=== PATIENT | female | born 1960 | race Caucasian/White ===

== ENCOUNTER 2020-05-26 22:04 | Emergency (ER) | payer OTHER ==
[~2020-05-26] VITALS: Ht 175.3 cm; Wt 74.8 kg
[2020-05-27] MEDS ORDERED: LISINOPRIL10 MG PO (01:10)
[2020-05-27] MEDS ORDERED: CARVEDILOL3.125 MG PO (01:10)
[2020-05-27] MEDS ORDERED: ARICEPT10 MG PO (01:11)
[2020-05-27] MEDS ORDERED: ATORVASTATIN CA20 MG PO (01:11)
[2020-05-27] MEDS ORDERED: FOLIC ACID1 MG PO (01:12)
[2020-05-27] MEDS ORDERED: LEVETIRACETAM750 MG PO (01:12)
[2020-05-27] MEDS ORDERED: GABAPENTIN 100100 MG PO (01:13)
[2020-05-27] MEDS ORDERED: QUETIAPINE FUMA50 MG PO (01:13)
[2020-05-27] MEDS ORDERED: TRAZODONE HCL50 MG PO (01:14)
[2020-05-27] MEDS ORDERED: LORAZEPAM 0.50.5 MG PO (01:16)
[2020-05-27] MEDS ORDERED: MELATONIN5 MG SUBLING (01:16)
[2020-05-27 04:44] VITALS: BP 90/52
== END 2020-05-27 04:44 ==
LOC: ER 22:04
DX: Z00.8 Encounter for other general examination (principal); Z79.899 Other long term (current) drug therapy; Z20.822 Contact with and (suspected) exposure to COVID-19

== ENCOUNTER 2020-05-27 04:38 | Inpatient (IN) | payer OTHER ==
[~2020-05-27] VITALS: Ht 175.3 cm; Wt 73.5 kg
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
[~2020-05-27 04:38] MED LIST: ARICEPT10 MG PO; ATORVASTATIN CA20 MG PO; CARVEDILOL3.125 MG PO; FOLIC ACID1 MG PO; GABAPENTIN 100100 MG PO; LEVETIRACETAM750 MG PO; LISINOPRIL10 MG PO; LORAZEPAM 0.50.5 MG PO; MELATONIN5 MG SUBLING; QUETIAPINE FUMA50 MG PO; TRAZODONE HCL50 MG PO
[2020-05-27 05:28] VITALS: BP 95/67
[2020-05-27 11:15] VITALS: BP 98/69
[2020-05-27 12:09] VITALS: BP 98/69
[2020-05-27 12:13] VITALS: BP 98/69
--- NOTE | 2020-05-27 13:04 | NUR ---
ASSUMED CARE AT 0700 THIS MORNING. PT. WALKING AROUND "HELPING TAKE CARE OF PATIENTS FOR STAFF" SHE WAS ASKED BY SEVERAL STAFF MEMBERS TO PLEASE DO NOT TAKE CARE OF THE PATIENTS WE DO NOT WANT HER TO GET HURT. SHE STATED, "WELL THEY WON'T TAKE CARE OF THE PATIENTS VERY WELL THOUGH". SHE WAS COOPERATIVE WITH THIS STAFF IN TAKING HER MORNING MEDICATIONS AFTER SHE ASKING WHAT EACH AND EVERY MEDICATION WAS. SHE REMAINS SOMEWHAT CONFUSED NEEDING SHOWN WHERE HER ROOM WAS REPEATEDLY AND EVERY TIME SHE NEEDED TO UTILIZE THE RESTROOM. NO AGRESSION NOTED TODAY. HER MOOD IS DEPRESSED WITH FLAT AFFECT. SHE WAS COOPERATIVE WITH COMING ONTO THE UNIT FOR GROUPS. WILL CONTINUE TO MONITOR.
[2020-05-27 13:35] LABS: ABSOLUTE NEUTROPHILS 3.2 thou/uL (1.4-8.2); BASOPHILS 2.7 % (0.0-2.0); EOSINOPHILS 3.5 % (0.0-3.0); HEMOGLOBIN 12.3 gm/dL (12.0-15.0); MCH 28.4 pg (26.0-34.0); MCHC 31.6 g/dL (28.0-37.0); MCV 89.9 fL (80.0-100.0); MONOCYTES 7.7 % (1.0-8.0); PLATELET COUNT 120 thou/uL (150-400); POLYS 55.1 % (36.0-66.0); RBC 4.34 mil/uL (4.20-5.00); RDW 20.8 % (10.5-14.5); WBC 6.1 thou/uL (4.0-11.0)
[2020-05-27 13:42] VITALS: BP 98/69
[2020-05-27 13:57] LABS: ALBUMIN 4.1 g/dL (3.4-5.0); CALCIUM 9.5 mg/dL (8.5-10.1); CREATININE 0.7 mg/dL (0.6-1.0); MAGNESIUM 1.6 mg/dL (1.8-2.4); POTASSIUM 4.8 mmol/L (3.5-5.1); TOTAL BILIRUBIN 0.4 mg/dL (0.2-1.0); TOTAL PROTEIN 7.9 g/dL (6.4-8.2)
[2020-05-27 19:14] VITALS: BP 142/88
--- NOTE | 2020-05-28 04:53 | NUR ---
05-27-20 CARE TRANSFERRED 1899 OBSERVED PT SITTING IN DAY ROOM SOCIALIZING. LATER PT AAOX3, VSS, RR EVEN AND NONLABORED ON RA. PT DENIES SI/HI. PT REPORTS PAIN OF SHOULDERS BI-LAT AND PAIN HAS BEEN MANAGED WITH PRN MEDICATION. PT PRESENTS CALM AND COOPERATIVE, BUT HAS DISORGNIZED THOUGHTS INTO RELATION ITEMS. ZERO S/S OF ACUTE DISTRESS NOTED, PT WILL CONTINUE TO BE MONITOR PER [facility] PROTOCOL.
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
[2020-05-28 11:45] VITALS: BP 131/85
[2020-05-28 12:42] VITALS: BP 131/85
--- NOTE | 2020-05-28 12:45 | NUR ---
ASSUMED CARE OF PT. AT 0700 THIS MORNING. PT. UP AND WALKING AROUND THE UNIT TALKING TO SEVERAL OF THE CONFUSED MEN ON THE UNIT, SHE REMAINED APPROPRIATE. SHE WAS ASKED ABOUT GIVING THE UA. SHE SMILED AND SAID YOU CAUGHT ME. WHEN THIS RN WENT INTO THE PT'S BATHROOM, SHE HAD REMOVED THE HAT FROM HER STOOL BEFORE SHE URINATED. THIS RN REPLACED IT AND ASKED AGAIN ABOUT HER BEING ABLE TO PROVIDE ANOTHER SAMPLE, SHE STATED SHE WOULD. ABOUT 1300 SHE DID SO. SPECIMEN TAKEN TO THE LAB. PT. ATTEMPTED TO TAKE FOOD TO HER ROOM. SHE WAS INFORMED THAT NO FOOD CAN BE IN THE ROOMS. PT. SNIPPED, "WELL YOU JUST FEEL ALMIGHTY TELLING ME WHAT TO DO, DON'T YOU?" LATER SHE WANTED IN HER ROOM AND WAS AGITATED THAT THE DOOR WAS LOCKED SO WANDERING PEERS WOULD STAY OUT OF THEIR ROOM. SHE DID TAKE HER MORNING MEDICATIONS AFTER ALL WERE EXPLAINED TO HER ONE BY ONE.
[2020-05-28 13:56] LABS: URINE BILIRUBIN NEGATIVE (Negative); URINE BLOOD NEGATIVE (Negative); URINE CLARITY CLEAR; URINE COLOR YELLOW; URINE GLUCOSE-RANDOM* NEGATIVE (Negative); URINE KETONES NEGATIVE (Negative); URINE LEUKOCYTES-REFLEX TRACE (Negative); URINE NITRITE-REFLEX NEGATIVE (Negative); URINE PROTEIN (DIPSTICK) NEGATIVE (Negative); URINE UROBILINOGEN 0.2 E.U./dl (0.2-1.0)
[2020-05-28 19:39] VITALS: BP 109/76
[2020-05-29 00:37] VITALS: BP 109/76
--- NOTE | 2020-05-29 03:38 | NUR ---
ASSESSMENT DOCUMENTED.PT BEEN RESTING IN NO ACUTE DISTRESS.A/OX3 WITH FORGETFULNESS.PT BEEN VERY CO-OPERATIVE WITH CARE AND TOOK HER MEDS W/O PROBLEMS.VSS.AMBULATED IN THE UNIT W/STEADY GAIT.PT WENT TO BED AT AROUND 2230 ADN SHE BEEN SLEEPING SINCE THEN IN NO DISTRESS OR CONCERNS.DENIES SI/HI,DENIES PAIN.CONTINENT OF B&B.POC IS TO CONTINUE WITH CURRENT MEDICAL MANAGEMENT.
[2020-05-29 07:00] VITALS: BP 130/88
--- NOTE | 2020-05-29 10:14 | NUR ---
Nutrition: pt admitted to [facility] unit with dementia with behaviors, agitation from NH. PMH: ETOH, seizures, bipolar, IC hemorrhage, GERD, HTN. No weight hx to evaluate however BMI 23 normal. On MVI, folic acid, thiamine. Pt eating 100% of meals so far on regular diet. Consider low nutrition risk at present.
--- NOTE | 2020-05-29 15:49 | NUR ---
PATIENT WAS UP, AND OUT ON THE UNIT WHEN CARE ASSUMED. SHE TOOK ALL MEDICATION WHOLE WITHOUT DIFFICULTY. PATIENT IS EATING MEALS, AND DRINKING FLUID WELL. PATIENT PARTICIPATING IN GROUP THERAPY. PATIENT DENIES SUICIDAL/HOMICIDAL IDEATION, SHE DENIES DEPRESSION/ANXIETY STATES "BEING HERE IS REALLY OVERWHELMING, IF AM DEPRESSED, IT'S BECAUSE AM IN HERE". SHE DENIES HAVING PHYSICAL PAIN. PATIENT AMBULATE WITH STEADY GAIT. AFFECT IS FLAT, MOOD IS CALM/EUTHYMIC. NO SIGN OF ACUTE DISTRESS NOTED AT THIS TIME, WILL MONITOR FOR SAFETY.
[2020-05-29 20:00] VITALS: BP 131/79
--- NOTE | 2020-05-30 03:14 | NUR ---
ASSESSMENT DOCUMENTED.PT A/OX4.VSS.PT AWOKE AT THIS TIME AND AT THE DINING AREA.SHE IS CALM W/O CONCERNS VOICED.PT HAS BEEN CO-OPERATIVE AND APPROPRIATE W/O AGITATION.NO SI/HI VOICED.POC IS TO CONTINUE WITH THE CURRENT MEDICAL AND BEHAVIORAL MANAGEMENT.
--- NOTE | 2020-05-30 04:45 | NUR ---
PT REQUESTING FOR A PEN AND PAPERS TO WRITE ON,STAFF PROVIDED A SMALL PENCIL AND SOME PAPERS,PT REQUESTED FOR A PEN,STAFF NOTIFIED PT PER THE PROTOCOLS SHE IS SUPPOSED TO USE A SMALL PENCIL TO ENSURE SAFETY.PT STARTED TO DISPLAY AGITATION W/IRRITATION STATING "I KNOW MY RIGHTS,I WANT A PEN" SHE CONTINUED TO BE ICREASINGLY AGITATED URGING W/SATFF, PACING BACK AND FORTH AT THE NURSES' STATION DEMANDING TO HAVE A PEN.PT EDUCATION GIVEN AGAIN REGARDING REASONS FOR NOT GIVING PT PENS W/O SUCCESS.PT GIVEN SEROQUEL D/T INCREASED AGITATION ACCOMPAINIED BY INCREASED PACING.WILL REASSESS.PT PACING AT THE NURSES STATION AT THIS TIME.WILL CONT TO REASSURE AND ASSESS.
[2020-05-30 10:09] VITALS: BP 115/78
--- NOTE | 2020-05-30 12:57 | NUR ---
YULIET contacted Radha via phone. No answer. YULIET left a msg. YULIET contacted Jewels and asked her to ask Radha to call her. Jewels said she would. YULIET team will continue to follow pt during her stay on this unit.
--- NOTE | 2020-05-30 16:37 | NUR ---
PATIENT HAS BEEN UP, AND OUT ON THE UNIT, AMBULATES WITH STEADY GAIT. PATIENT TAKES MEDICATION WHOLE WITHOUT DIFFICULTY. SHE IS EATING MEALS, AND DRINKING FLUID WELL. PATIENT DENIES SUICIDAL/HOMICIDAL IDEATION, SHE RATES DEPRESSION 10/23, "AM SO DEPRESSED BECAUSE ALL THAT IS GOING ON" WILL NOT ELABORATE. SHE DENIES ANXIETY, DENIES HAVING PHYSICAL PAIN. PATIENT PARTICIPATES IN GROUP THERAPY, NO SIGN OF ACUTE DISTRESS NOTED, WILL MONITOR FOR SAFETY.
[2020-05-30 19:07] LABS: SYPHILIS AB Non Reactive (Non Reactive)
[2020-05-30 19:39] VITALS: BP 142/93
[2020-05-30 20:36] LABS: HEMATOCRIT 37.5 % (37.0-47.0); HEMOGLOBIN 12.4 gm/dL (12.0-15.0); MCH 28.9 pg (26.0-34.0); MCHC 33.1 g/dL (28.0-37.0); MCV 87.4 fL (80.0-100.0); RBC 4.29 mil/uL (4.20-5.00); RDW 19.8 % (10.5-14.5); WBC 8.5 thou/uL (4.0-11.0)
[2020-05-30 20:50] LABS: ALBUMIN 4.4 g/dL (3.4-5.0); CALCIUM 9.3 mg/dL (8.5-10.1); CREATININE 0.9 mg/dL (0.6-1.0); MAGNESIUM 1.8 mg/dL (1.8-2.4); POTASSIUM 4.5 mmol/L (3.5-5.1); TOTAL BILIRUBIN 0.5 mg/dL (0.2-1.0); TOTAL PROTEIN 8.1 g/dL (6.4-8.2)
--- NOTE | 2020-05-30 21:00 | NUR ---
Critical labs called to unit for Sodium at 118. Dr. Abdi notified of results at 2055.
--- NOTE | 2020-05-30 23:54 | NUR ---
DRAPERY MAKER called at 1954 for witnessed seizure activity. See DRAPERY MAKER flowsheet.
--- NOTE | 2020-05-31 00:07 | NUR ---
Late entry for 05/30/20 @ 1959. At approximately 1955 nurse was notified by surveillance director that patient was having what appeared to be a seizure. Nursing when to day room where patient was laying on floor. Pt had been lowered to floor by surveillance director. Pt having observed having tonic/clonic movements that lasted approximately 2 minutes. Pt was rolled to her right side. Pt was dusky in color. Pt was incontinent of urine during seizure. Pt had no c/o pain upon coming out of seizure, but small amount of blood was observed coming from pts mouth were she had bit her tongue during the seizure. VS during seizure taken: 168/79; 85; 18; 97% on room air. Blood sugar checked and was 98. Rapid response was called and rapid response team took over care of pt at that time. Dr. Carter on unit and aware; Dr. Abdi notified. Labs drawn and order for CT w/contrast received. Pt was transfered to ICU 250 at approximately 2215 via w/c accompanied by EMPLOYEE COMMUNICATIONS INTERN after report was given to IRISH Nunez at 2206. Attempted to leave message for daughterRadha, mailbox full so no message was able to be left. Alternative contact Jewels Clay notified of pt transfer to medical floor.
--- NOTE | 2020-05-31 07:17 | EKG ---
[address] [address] ELECTROCARDIOGRAM REPORT Name: BILLIE WINKLER Room #: 524A-A [facility] IN .R.#: [id number] Admission: 05/27/20 Attend Phys: Anais Nunes MD Discharge: 05/30/20 Date of : 58 Report #: [id number] [facility] Test Date: 2020-05-30 Test Time: 20:15:28 Pat Name: BILLIE WINKLER Department: Room: [facility] A Gender: F General Manager: SELENA : 1960 Requested By: Cyrus Carter Order Number: [id number] MD: Devon Schaffer Measurements Intervals [place] Rate: 77 P: 35 PA: 248 QRS: 54 QRSD: 99 T: 44 QT: 395 QTc: 448 Interpretive Statements Sinus rhythm Prolonged PA interval Baseline wander in lead(s) V3,V6 No previous ECG available for comparison Electronically Signed On 05-31-2020 7:17:43 CDT by Devon Schaffer [email or web address] <ELECTRONICALLY SIGNED> By: Devon Schaffer MD, [facility] 05/31/20716 14 14 Devon Schaffer MD, FACC /EPI
[2020-05-31] MEDS ORDERED: DESYREL150 MG PO (12:37)
[2020-05-31] MEDS ORDERED: LISINOPRIL10 MG PO (12:39)
[2020-05-31] MEDS ORDERED: SEROQUEL 25 MG25 MG PO (12:39)
[2020-05-31] MEDS ORDERED: LEVETIRACETAM500 M1 PO (12:41)
[2020-05-31] MEDS ORDERED: FOLIC ACID1 MG PO (12:42)
[2020-05-31] MEDS ORDERED: ARICEPT10 M1 PO (12:43)
[2020-05-31] MEDS ORDERED: LIPITOR 20 MG T20 M1 PO (12:44)
[2020-05-31] MEDS ORDERED: GABAPENTIN100 MG PO (12:46)
[2020-05-31] MEDS ORDERED: CARVEDILOL12.5 MG PO (12:46)
[2020-05-31] MEDS ORDERED: MELATONIN5 MG PO (12:48)
[2020-05-31] MEDS ORDERED: LORAZEPAM 0.50.5 MG PO (12:49)
== END 2020-05-30 21:56 | disposition short-term general hospital (02) | DRG 884 ==
LOC: SBH 04:38
PROVIDERS: Internal Medicine; ADMIT Psychiatry & Neurology Psychiatry; ATTEND Psychiatry & Neurology Psychiatry
DX: F01.51 Vascular dementia, unspecified severity, with behavioral disturbance (principal); E22.2 Syndrome of inappropriate secretion of antidiuretic hormone; F19.10 Other psychoactive substance abuse, uncomplicated; I10 Essential (primary) hypertension; E78.5 Hyperlipidemia, unspecified; D69.6 Thrombocytopenia, unspecified; F10.20 Alcohol dependence, uncomplicated; F31.9 Bipolar disorder, unspecified; R56.9 Unspecified convulsions
CPT/HCPCS: 10880

== ENCOUNTER 2020-05-30 22:02 | Inpatient (IN) | payer OTHER ==
[~2020-05-30] VITALS: Ht 177.8 cm; Wt 76.0 kg
[2020-05-30 23:30] VITALS: BP 160/75
--- NOTE | 2020-05-30 23:36 | NUR ---
[address] OF [address] BRAY ADMITTED TO ICU POST SEIZURE FRO, 5 [facility] UNIT. AWAKE AND ALERT COOPERATIVE. SODIUM 118 ON ADMIT 3 % SALINE ORDERED AT 30 CC/HR. WILL CONT TO MONITOR
[2020-05-31] VITALS (23 sets, daily range): BP systolic 94–124; BP diastolic 54–72
--- NOTE | 2020-05-31 01:15 | NUR ---
NA 122 3% NS STOPPED PER ORDER
[2020-05-31 03:09] LABS: URINE POTASSIUM-RANDOM* 9.7 mmol/L
[2020-05-31 05:16] LABS: HEMATOCRIT 38.4 % (37.0-47.0); HEMOGLOBIN 12.8 gm/dL (12.0-15.0); MCH 28.9 pg (26.0-34.0); MCHC 33.2 g/dL (28.0-37.0); RBC 4.41 mil/uL (4.20-5.00); RDW 19.2 % (10.5-14.5); WBC 6.7 thou/uL (4.0-11.0)
[2020-05-31 05:32] LABS: CALCIUM 9.4 mg/dL (8.5-10.1); CREATININE 0.6 mg/dL (0.6-1.0); POTASSIUM 3.7 mmol/L (3.5-5.1)
--- NOTE | 2020-05-31 06:00 | NUR ---
PT HAS SLEPT AT INTERVALS. NA NOW 133. DR BRAY NOTIFIED. SHE WILL SEE PT AND DISCHARGE HER BACK UPSTAIRS THIS AM. PROGRESSING TOWARD GOALS
--- NOTE | 2020-05-31 09:22 | NUR ---
SW will continue to follow pt during her stay on the medical unit.
--- NOTE | 2020-05-31 10:48 | NUR ---
chart review. she came down from [facility] rt abnormal lab, NA was low. anticipated returning back to [facility] when medically stable. discussed during am rounds.
--- NOTE | 2020-05-31 11:12 | NUR ---
Sodium now 127, recheck at 8pm and then in am. transfer to 524B.
[2020-05-31] MEDS ORDERED: DESYREL150 MG PO (12:37)
[2020-05-31] MEDS ORDERED: LISINOPRIL10 MG PO (12:39)
[2020-05-31] MEDS ORDERED: SEROQUEL 25 MG25 MG PO (12:39)
[2020-05-31] MEDS ORDERED: LEVETIRACETAM500 M1 PO (12:41)
[2020-05-31] MEDS ORDERED: FOLIC ACID1 MG PO (12:42)
[2020-05-31] MEDS ORDERED: ARICEPT10 M1 PO (12:43)
[2020-05-31] MEDS ORDERED: LIPITOR 20 MG T20 M1 PO (12:44)
[2020-05-31] MEDS ORDERED: CARVEDILOL12.5 MG PO (12:46)
[2020-05-31] MEDS ORDERED: GABAPENTIN100 MG PO (12:46)
[2020-05-31] MEDS ORDERED: MELATONIN5 MG PO (12:48)
[2020-05-31] MEDS ORDERED: LORAZEPAM 0.50.5 MG PO (12:49)
== END 2020-05-31 11:30 | disposition short-term general hospital (02) | DRG 641 ==
LOC: ICU 22:02
PROVIDERS: ADMIT Internal Medicine; ATTEND Internal Medicine
DX: E87.1 Hypo-osmolality and hyponatremia (principal); F03.91 Unspecified dementia, unspecified severity, with behavioral disturbance; F32.9 Major depressive disorder, single episode, unspecified; F41.9 Anxiety disorder, unspecified; K21.9 Gastro-esophageal reflux disease without esophagitis; I10 Essential (primary) hypertension; G47.00 Insomnia, unspecified; I48.91 Unspecified atrial fibrillation; E78.2 Mixed hyperlipidemia; Z86.73 Personal history of transient ischemic attack (TIA), and cerebral infarction without residual deficits; Z79.899 Other long term (current) drug therapy
CPT/HCPCS: 10078

== ENCOUNTER 2020-05-31 12:15 | Inpatient (IN) | payer OTHER ==
[~2020-05-31] VITALS: Ht 175.3 cm; Wt 76.2 kg
[2020-05-31] MEDS ORDERED: DESYREL150 MG PO (12:37)
[2020-05-31] MEDS ORDERED: SEROQUEL 25 MG25 MG PO (12:39)
[2020-05-31] MEDS ORDERED: LISINOPRIL10 MG PO (12:39)
[2020-05-31] MEDS ORDERED: LEVETIRACETAM500 M1 PO (12:41)
[2020-05-31] MEDS ORDERED: FOLIC ACID1 MG PO (12:42)
[2020-05-31] MEDS ORDERED: ARICEPT10 M1 PO (12:43)
[2020-05-31 12:44] VITALS: BP 134/72
[2020-05-31] MEDS ORDERED: LIPITOR 20 MG T20 M1 PO (12:44)
[2020-05-31] MEDS ORDERED: CARVEDILOL12.5 MG PO (12:46)
[2020-05-31] MEDS ORDERED: GABAPENTIN100 MG PO (12:46)
[2020-05-31] MEDS ORDERED: MELATONIN5 MG PO (12:48)
[2020-05-31] MEDS ORDERED: LORAZEPAM 0.50.5 MG PO (12:49)
--- NOTE | 2020-05-31 17:12 | NUR ---
1650 PATIENT TRANSFER FROM ICU BACK TO [facility] UNIT; UPON ARRIVING TO UNIT PATIENT CALM COOPERATIVE. PATIENT DENIES SI/HI/AH/VH AT PRESENT PATIENTS ABDOMEN SOFT BOWEL SOUNDS PRESENT. PATIENTS LUNGS CLEAR PATIENT WAS INTERACTING IN GROUPS AND WITH OTHER PATIENTS. PATIENT HAD TO BE REMINDED OF NOT TOUCHING OTHER PATIENTS. PATIENT WAS TRYING TO BE HELPFUL WITH SOME OF THE PATIENTS. I WENT TO ICU TO SEE IF PATIENTS MINT GREEN SWEATER AND PAIR OF BLACK SLACKS WERE DOWN THERE. I DID NOT FIND PATIENT THE ARTICLES OF CLOTHING. PATIENT ALERT ORIENTED TIMES 3 NO BEHAVIORS WILL CONTINUE TO MONITOR PATIENT FOR SAFETY AND BEHAVIORS.
[2020-05-31 19:51] VITALS: BP 102/72
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
[2020-06-01 05:34] LABS: CALCIUM 9.8 mg/dL (8.5-10.1); CREATININE 0.5 mg/dL (0.6-1.0); POTASSIUM 4.1 mmol/L (3.5-5.1)
[2020-06-01 09:37] VITALS: BP 98/73
--- NOTE | 2020-06-01 10:43 | NUR ---
Nutrition: New admit screen. Intake 80-100%. Wt earlier in the week 162-165 lb. Albumin 4.4, Cr 0.5. Meds reviewed. Pt confused. Hx of ETOH, seizures, Bipolar, GERD, HTN. Pt assessed at low nutrition risk.
[2020-06-01 11:46] VITALS: BP 128/72
--- NOTE | 2020-06-01 14:15 | NUR ---
RT Progress Note- Trinidad has been variably active in recreation therapy groups during this review. Over the last few days she has begun to wander in and out of group and is unable to remain seated longer than a few minutes at a time. She is requiring frequent reminders of what the task she is to complete is, and forgets a few minutes later. DATA OPERATIONS MANAGER will continue to encourage her participation and improved attention and concentration.
--- NOTE | 2020-06-01 15:57 | NUR ---
YULIET faxed updates for pt to Maria with [facility]. YULIET team will continue to follow pt during her stay on this unit.
--- NOTE | 2020-06-01 16:23 | NUR ---
1625 RESUMMED CARE FROM OVERNIGHT SHIFT THIS AM, PATIENT IN DAY ROOM WANDERING AROUND UNIT. PATIENT HAS POOR BOUNDARIES TOUCHING OTHER PATIENT GOING IN PATIENTS ROOMS. PATIENT THIS AM WAS FOUND IN A MALE PATIENTS DOORWAY TOUCHING ON PATIENT. I REDIRECTED PATIENT TO NOT TOUCH OTHER PATIENTS, I CLOSED OTHER PATIENTS DOOR TO KEEP PATIENT OUT OF ROOMS. PATIENT ALERT ORIENTED TO SELF AND PLACE; PATIENT IS NOT REDIRECTABLE. PATIENT GOT SEROQUEL 75 MG AT 1345 PO FOR AGITATION/AGGRESSION TOWARDS STAFF. PATIENT SEVERAL HOURS LATER STILL POOR BOUNDARIES AND I CALLED DR AGUIRRE HE CHANGED THE SEROQUEL TO 100 MG TID. PATIENT RECEIVED A DOSE OF 100 MG AT 1525, PATIENT DENIES SI/HI/AH/VH AT PRESENT. PATIENTS ABDOMEN SOFT BOWEL SOUNDS PRESENT PATIENTS LUNGS CLEAR; PATIENT IS STILL NOT REDIRECTABLE STILL TOUCHING PATIENTS YELLING IN THE HALLS. I CALLED DR AGUIRRE FOR A IM PRN HE ORDERED HALDOL 7.5 MG AND ATIVAN 1.5 MG. PATIENT WAS GIVEN THIS AT 1623. PATIENT IS CONFUSED AT TIMES THOUGHTS ARE SCATTERED. WILL CONTINUE TO MONITOR PATIENT FOR SAFETY AND BEHAVIORS.
[2020-06-01 22:25] VITALS: BP 109/68
--- NOTE | 2020-06-01 22:45 | NUR ---
ASSUMED CARE OF PT FROM DAY SHIFT PT ALERT TO SELF , UP AMBULATING IN HALLWAYS AND WANDERING IN OTHER PATIENTS ROOMS, ANGRY AND AGGRESSIVE AT TIMES ,HITTING AT STAFF AND PULLING ON ARMS OF OTHER PATIENTS. PT DO NOT FOLLOW COMMANDS AND IS NOT EASILY DIRECTED. PT DID TAKE HS MEDICATION. PT HAVE FALL BRACELET ON AND YELLOW DANNA SHIRT BUT WILL KEEP YELLOW NON- SLIP SLIPPERS. PT SITTING ON COUCH AND HAD A WITNESSED FALL WHEN GETTING UP FROM COUCH . DR AGUIRRE NOTIFED. ONE TO ONE SITTER ORDERED AND NEURO CHECKS , WILL CONITUE TO MONITOR AND WILL NOTIFEY ND OF CHANGES. PT REMAIN VERY AGITATED AND CONFUSED AND AGRESSIVE WITH STAFF.
--- NOTE | 2020-06-02 06:08 | NUR ---
RIGHT WRIST SPLINT APPLIED TO WRISIT PT TOLERATED FOR APPROX ONE HOUR THAN TOOK BRACE OFF, BRACE REAPPLIED AND PT CONITUE TO REMOVE. PT REMAINS WITH 1:1 SITTER FOR SAFETY .PT DENIES PAIN WHEN ASK. WILL REPORT CHANGES OR ABNORMAL FINDINGS.
[2020-06-02 08:25] VITALS: BP 133/83
[2020-06-02 13:14] LABS: CREATININE 0.7 mg/dL (0.6-1.0); MAGNESIUM 1.7 mg/dL (1.8-2.4); PHOSPHORUS 4.2 mg/dL (2.6-4.7); POTASSIUM 3.9 mmol/L (3.5-5.1)
--- NOTE | 2020-06-02 14:47 | NUR ---
Orientated to person, place but not to time. Thinks it is 2012. Alert and cooperative, compliant with meds. Sitting in gerichair with lapbuddy in place. Denies SI/HI. Tylenol given for pain mid morning after cast placed on R arm, noncompliant with brace. States pain gone. Breath sounds clear. Reg HR auscultated. Color pink with brisk capillary refill and palpable peripheral pulses. No edema noted. Yellow urine per toilet per report. Active bowel sounds over soft, rounded abdomen. Able to stand with assistance. R forearm/wrist casted this AM, brisk capillary refill in fingers. Handed cast to community development coordinator who was sitting across table from her. Apparently she wiggled cast off arm, no s/o destruction to cast. Ortho called, Dr. Palacios states he will have PA call back with plan. Dainelle VELASQUEZ called, told to replace brace and she will be here in approximately an hour to place long arm cast. No s/o of discomfort, pt compliant with brace being replaced. Sitting quietly in gerichair without s/o distress.
[2020-06-02 19:57] VITALS: BP 126/81
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
[2020-06-03 00:40] VITALS: BP 126/81
--- NOTE | 2020-06-03 02:59 | NUR ---
Assumed care on 06/02/20 @ 1900, seated in a luz chair in the day room watching TV, and monitored by a 1:1 sitter (while awake). Compliant with medications, took meds whole with water. FX right upper extremity on 06/01. Casted to above the elbow. Retired to bed @ 2200, sleeping at this writing, eyes closed, respirations even and unlabored. High Fall risk and Santizo scale of 55. Will continue to monitor as per unit protocol for comfort and safety. Bed in low position, bed alarm set.
[2020-06-03 09:50] VITALS: BP 109/80
--- NOTE | 2020-06-03 10:38 | NUR ---
YULIET received a message from patient's cousin Marie. YULIET returned call to family memeber. Marie reported patient loves to read and do crossword puzzles. Dilcia reported she is a support for patient and can help patient and staff through difficult behaviors. SW will provide patient with contact information for Marie.
--- NOTE | 2020-06-03 13:53 | NUR ---
NOTED TO BE SITTING QUIETLY IN DAYROOM ON INITIAL ASSESSMENT THIS AM AT 0745-QUIET THROUGHOUT BREAKFAST AND TOOK AM MEDICATIONS WITHOUT RESISTANCE. AT APPROX 1100 NOTED TO HAVE INCREASED RESTLESSNESS-YELLING AT STAFF IN DAYROOM "SOMEONE COME GET THIS LADY SHE NEEDS TO GO TO THE BATHROOM AND SHE NEEDS TO GO RIGHT NOW" WHEN ASKED TO PLEASE NOT YELL NOTED TO HAVE INCREASED AGITATION "IF YOU DIDN'T WANT THIS JOB YOU SHOULDN'T BE WORKING IN THIS [facility]" REMOVED LAP SHAYLEE AND WALKING RAPIDLY OUT OF DINING ROOM AREA-DID RETURN TO DAYROOM AFTER MULTIPLE PROMPTS BUT REMAINS IRRITABLE AND RESTLESS-GETTING UP ON OWN DESPITE UNSTEADY GAIT AND RECENT FALL WITH FX-DR. AGUIRRE ON UNIT AND INFORMED OF PTS INCREASED AGITATION AND REFUSAL TO FOLLOW VERBAL DIRECTION DENIES C/O PAIN. NO NOTED PSYCHOSIS- ASKED TO SEE PT RE INCREASED AGITATION AND REPORTS HE TALKED WITH HER RE BEHAVIORS-NO NEW ORDERS RECEIVED. 1;1 DC'D. AT APPROX 1145 BECAME AGITATED WITH ANOTHER RN ON UNIT WHO ASKED HER TO RETURN UNIT PHONE AFTER COMPLETING PHONE CALL WITH SW-GOT UP FROM CHAIR AND BEGAN TO RUN ACROSS DAYROOM IN ATTEMPT TO GET PHONE BACK INSISTING THAT IT WAS HERS-YELLING OBSCENITIES AT THIS NURSE AND REFUSES TO SIT BACK DOWN IN CHAIR. DR. AGUIRRE NOTIFIED OF ABOVE
--- NOTE | 2020-06-03 16:43 | NUR ---
YULIET helped patient make a phone call to two of her cousins. Patient reported she was happy and provided the family with her security codes.
--- NOTE | 2020-06-04 05:20 | NUR ---
Assumed care for pt 1900. Pt on 1:1 at this time for safety. Pt in dining room watching television. Pt has been calm and cooperative in earlier part of shift. Pt denied any pain at time of assessment, and just stated her arm is achy from having to hold that big cast. Pt later awoke at appoximately 0320 and became increasing irritated with the staff that were with her. Dr. Nicole was on oncall and notified with orders received to give Geodon 20 mg IM x 1. Pt cooperative with receiving the shot. Will continue to monitor for any changes.
[2020-06-04 05:42] LABS: CALCIUM 9.5 mg/dL (8.5-10.1); CREATININE 0.7 mg/dL (0.6-1.0); MAGNESIUM 1.6 mg/dL (1.8-2.4); PHOSPHORUS 4.1 mg/dL (2.6-4.7)
[2020-06-04 10:30] VITALS: BP 156/94
--- NOTE | 2020-06-04 11:52 | NUR ---
Assumed pt care at 0700. pt was oriented to self. Assessments completed, VSS. pt took medication whole with thin liquid, no difficulty noted. pt ambulates with a Liz chair. calm and co-operative, denies si/hi. At this time there is no c/o of pain. at this time there is no sign of acute distress noted. pt is seated in the day room at this time. IV was pulled out per Dr Jackson order. pt was assisted with meals.Will continue to monitor.
--- NOTE | 2020-06-04 16:49 | NUR ---
Assumed pt care at 0700. pt was alert and oriented x2. denies si/hi. denies pain. Assessments completed,vss. pt ambulates with a steady gait. pt has a one on one staff with her all day. pt took meds whole without difficulty. participated in groups. pt got aggressive towards staff and was threatening violence. pt was redirected. pt continue to threaten staff and disrupting other pt. pt was screaming and yelling. pt situation was reported to DR Carter. An order of 20mg of Geodon was obtained. pt was given 20mg IM of Geodon at 1251. At this time there is no c/o of pain. will continue to monitor pt.
[2020-06-04 19:28] VITALS: BP 117/88
[2020-06-04 20:00] VITALS: BP 117/88
--- NOTE | 2020-06-05 02:22 | NUR ---
ASSESSMENT: PT REMAIN 1:1 SITTER WHILE AWAKE. PT WAS USING INAPPROPRIATE LANGUAGE TOWARDS STAFF, SCREAMING DEMANDS, GOING IN OTHERS ROOM, AND DISPLAYING AGRESSIVE BEHAVIOR TOWARDS STAFF. SECURITY WAS CALLWED TWICE FOR THIS PT. TELEPHONE SURVEYOR UMM WAS NOTIFIED OF PT'S BEHAVIOR AND ONE TIME/MAY REPEAT ORDER FOR SUSI WAS GIVEN. RIGHT CAST INTACT. DID NOT NEED TO USE THE SECOND DOSE OF YET, PT SLEEPING AT THIS TIME. WILL CONTINUE TO MONITOR.
[2020-06-05 07:55] VITALS: BP 123/81
--- NOTE | 2020-06-05 11:24 | NUR ---
YULIET contacted Maria to give her a verbal update on pt. YULIET was told she was in the building, but the recreation establishment manager could not locate her at the moment. YULIET left a msg with the recreation establishment manager. YULIET will continue to follow pt durign her stay on this unit.
--- NOTE | 2020-06-05 12:10 | NUR ---
Assumed pt care at 0700. pt was uco-operative with care. took her medication with thin liquid, no difficulty noted. pt was aggressive towards staffs, pt was using inappropriate words. pt was redirected. pt continued with behaviors. Dr cartagena was notified. At 1033 pt was given 15mg IM geodon. pt partcipated in groups. denies si/hi. denies pain. Assessments completed, VSS. pt ambulates with unsteady gait. pt refused to use walking aids. at this time pt is in the day room disrupting and touching other pts food. pt was redirected. Will continue to monitor pt.
--- NOTE | 2020-06-05 13:32 | NUR ---
Patient observed several times this shift. Patient seated in luz chair at one point. Patient began screaming, kicking the table, cursing. Staff attempted to walk with patient and speak with her. Patient impulsive, easily irritable. Patient was able to walk to the couch and fell asleep for approximately 20 minutes. Patient then woke up and started to run toward another patient which she referred to as "dad". Patient attempted to kiss him, hug him and speak with him. Attempted to re-orient patient in respecting boundaries. Not effective. Patient began to swing her arm, hitting nurse. Patient assisted to luz chair for safety of staff, herself and others. Patient later observed pacing the unit with 1:1 staff with her. Patient irritable when staff stood next to her. Making brisk movements. While this nurse was assisting another patient, this patient walked up and tried to push this nurse away. Attempted to re-orient patient, speak with patient, assist her with a walk. This patient decided to leave one patient alone with nurse then went to another patient and tried to assist her with her w/c. Despite all interventions attempted, patient remained agitated, screaming/cursing occasionally, resistive to help. Patient was then visualized sitting herself on the floor with 1:1 present. Patient did not fall and sat self down. Patient declined assistance in getting up and chose to sit on the floor for a couple minutes with 1:1 next to her.
--- NOTE | 2020-06-05 14:14 | NUR ---
Patient continues to pace unit, labile. Goes from screaming/cursing to smiling/laughing/dancing. Patient continues to sit self on floor, not re-directable. Intrusive with other peers causing agitation/irritability to other peers. Disruptive to unit. Patient delusional, talking about being , giving to baby Ahsan. Attempting to hit glass on nurses station/freeman/staff. Spoke with Dr. Carter due to Geodon not being effective for this patient. Order obtained for Thorazine 50mg IM STAT. Medication administered to left arm with staff assist x3.
[2020-06-05 19:35] VITALS: BP 143/88
--- NOTE | 2020-06-06 04:37 | NUR ---
Assumed care of pt at 1900. Pt up on unit walking around in dining room and hallways. Pt has been preoccupied with rastafarian thoughts and has been observed having conversations with unseen others. Pt has been paranoid regarding different staff members during the evening, but was able to be redirected. Pt is compliant with taking HS medications. Pt has poor boundaries and wanders into other patient rooms at times and gets into their personal space. Pt has been up all night and has not slept. Pt encouraged to lay down in bed and assisted to room several times,as she reports she is tired, but then will get up immediately and start walking around. Pt became increasingly aggitated and yelling out and at REVENUE LIAISON around 0320. She then tried to enter another pt room and started screaming when staff redirected her. Pt given PRN Thorazine 50 mg IM at approximately. 0340 for increased aggitation and screaming. Pt on 12 min checks for safety. Continue to monitor for changes in mood and behaviors. Orders received at 1938 from LINDA Brizuela MD, to place 1:1 on hold for this shift.
--- NOTE | 2020-06-06 09:13 | NUR ---
on 06/05/2020 @ 10:15am SW walked out of office as Pt was yelling and screaming " Get me the fuck out of here, let me the fuck go". Pt was sitting in a luz chair attempting to slide under a lap nika. MATHEW gardnersy pusched the luz nanda into the hallway. Pt continued to yell and get out of lap nika. SW took lap nika off the Pt and assist Pt to sit up in the chair. Pt calmed down for a moment. SW attempted to engage the Pt in a conversation. Pt inital was still up set and yelling but then took SW's hand and walked doen the hallway. SW and Pt walked to Pt's room which seemed to help descalate the Pt. Pt was able to lay in her bed. Pt thought SW had a recording device and wanted SW to record her story. SW allowed Pt to talk, Pt's speech was disorganized. SW spend about 20 mins with the Pt. Pt was calm when SW left.
[2020-06-06 09:16] VITALS: BP 126/80
[2020-06-06 10:16] VITALS: BP 126/80
[2020-06-06 11:21] LABS: CALCIUM 9.4 mg/dL (8.5-10.1); CREATININE 0.7 mg/dL (0.6-1.0); MAGNESIUM 1.6 mg/dL (1.8-2.4); PHOSPHORUS 4.3 mg/dL (2.5-4.9); POTASSIUM 4.1 mmol/L (3.5-5.1)
--- NOTE | 2020-06-06 11:28 | NUR ---
DURING SHIFT CHANGE THIS MORNING, ENVIRONMENTAL STAFF WAS AT THE EXIT DOOR SCREAMING "HELP HELP" THIS CROSS TIE MAKER, THE OFF-GOING NURSE, AND OTHER STAFF MEMBERS RUSHED TO THE DOOR, IT WAS OBSERVED THAT PATIENT WAS ATTEMPTING TO ELOPE FROM THE UNIT. PATIENT REDIRECTED BACK TO THE UNIT. PATIENT REMAIN WITH DISORGANIZED THOUGHT PROCESS, SHE IS FORGETFUL, CONFUSED, WANDERS, LACKS PERSONAL BOUNDARIES. PATIENT TOOK ALL MORNING MEDICATION WHOLE WITHOUT DIFFICULTY, SHE IS EATING MEALS, AND DRINKING FLUID WELL. CAST IN PLACE TO RIGHT ARM. PATIENT DENIES SUICIDAL IDEATION, UNABLE TO APPROPRIATELY RESPOND TO FURTHER ASSESSMENT QUESTIONS DUE TO COGNITIVE IMPAIRMENT. PATIENT HAS FINALLY CALMED DOWN, SITTING IN DAYROOM TAKING A NAP. PATIENT DID PARTICIPATE IN GROUP THERAPY. AFFECT IS FLAT/BLUNTED, MOOD RESTLESS. NO SIGN OF ACUTE DISTRESS NOTED AT THIS TIME, WILL CONTINUE TO REDIRECT, AND MONITOR FOR SAFETY.
--- NOTE | 2020-06-06 13:44 | NUR ---
YULIET contacted [facility] and confirmed that pt does indeed reside in memory care. YULIET faxed updates. SW team will continue to follow pt during her stay on this unit.
[2020-06-06 19:27] VITALS: BP 154/96
--- NOTE | 2020-06-07 03:46 | NUR ---
ASSUMED CARE OF PAIENT FROM DAY SHIFT PT CALM COOPERATIVE , FOLLOWING DIRECTIONS EASILY. MEDICATION TAKEN, PT UP IN DAYROOM WALKING AROUNDS ,GAIT STEADY. HS SNACK EATEN THEN PT AMBUALTED TO ROOM ,WENT TO BATHRROM VOICED AND CLIMB INTO BED. BEDALARM ON FOR SAFETY. FREQ ROUNDING PER PROTOCOL. WILL REPORT CHANGES AND ABNORMAL FINDINDS. WILL CONITUE WITH CURRENT PLAN OF CARE.
[2020-06-07 09:43] VITALS: BP 112/78
--- NOTE | 2020-06-07 11:36 | NUR ---
Alert and orientated to name. Gives day in 2030 for date. Knows she is in hospital but doesn't know name. Loud, using profanity, demanding coffee and becoming angry when it is not given. Calmed down signigicantly after AM meds. Remained redirectable despite being angry. Breath sounds clear. Reg HR auscultated. Color pink with brisk capillary refill and palpable peripheral pulses. No edema. Independent with voiding. Active bowel sounds over soft, rounded abdomen. Cast per R arm intact, brisk capillary refill in fingers, no edema. Currently standing in day room interacting with peers.
[2020-06-07 19:15] VITALS: BP 109/75
--- NOTE | 2020-06-08 02:54 | NUR ---
Patient was able to sleep part of the shift in the recliner in the dayroom. Patient woke up, impulsive, demanding coffee and a cigarette. Offered ice water and magazines. Patient unsteady on her feet. Attempting to pace the halls. Declining to remain seated. Patient verbally threatening staff. As she became more agitated,patient started to swing her arms at staff, threatening to hit. Security notified. Nurse administered Thorazine IM to due increase in agitation and physical aggression.
[2020-06-08 06:59] LABS: CALCIUM 9.2 mg/dL (8.5-10.1); CREATININE 0.6 mg/dL (0.6-1.0); POTASSIUM 4.3 mmol/L (3.5-5.1)
[2020-06-08 10:16] VITALS: BP 112/73
--- NOTE | 2020-06-08 10:23 | NUR ---
Nutrition followup: pt weights stable within 161-165#. PO intake 75-100% most meals on regular diet with 1500 mL fluid restriction-hyponatremia. On folic acid supplementation. Low nutrition risk.
--- NOTE | 2020-06-08 14:25 | NUR ---
PT ALERT AND ORIENTED TIMES FOUR. VSS. PT DENIES PAIN/SOA/HI/SI/AH/VH. PT TOLERATES MEDS AND MEALS. PT ATTENDED GROUPS THIS SHIFT. WILL CONTINUE TO MONITOR.
[2020-06-08 19:36] VITALS: BP 148/89
--- NOTE | 2020-06-09 | NUR ---
Alert and orientated to person and place. Give date as day in May 2021. Calm, cooperative and compliant this evening. Took 2 (1 liter each) mugs from her which were almost empty. When offered 4 oz H2O with evening meds she only took half and then gave cup back. Compliant with Na++ tablet and rest of meds. Denies SI/HI. Breath sounds clear. Reg HR auscultated. Color pink with brisk capillary refill and palpable peripheral pulses. No edema noted. Active bowel sounds over soft, rounded abdomen. States she had BM earlier today. Independent with voiding. Yellow urine per toilet. Got up for approximately 20 min around 2330 but then was compliant with going back to bed. Currently sleeping without s/o distress.
[2020-06-09 09:14] VITALS: BP 129/89
--- NOTE | 2020-06-09 16:08 | NUR ---
PT WAS FAIRLY CALM THIS MORN WITH MED PASS... AROUND LUNCHTIME BECAME ANGRY AND RAISED CAST TO TRY TO STRIKE STAFF MEMBER. WAS UPSET SENIOR APPLICATION SOFTWARE ENGINEER NEEDED MENU FROM TRAY TO RECORD PERCENT EATEN. WAS TRYING TO TAKE MENU BACK FROM STAFF..
[2020-06-09 19:35] VITALS: BP 150/85
--- NOTE | 2020-06-09 23:11 | NUR ---
Alert and orientated to person, place and situation. States day is in 2022. Calm, cooperative and compliant. Interacting with peers. Denies SI/HI. Breath sounds clear. Reg HR auscultated. Color pink with brisk capillary refill and palpable peripheral pulses. No edema noted. Independent with voiding. States she had BM "a few minutes ago". Active bowel sounds over soft, rounded abdomen. States she has pain on the bottom of her L foot and points to plantar wart. Able to ambulate t/o unit with reg, steady gait. Encouraged to rest foot. Cast per R arm intact with brisk capillary refill in fingers. Currently sleeping in bed with bed alarm on. No s/o distress.
--- NOTE | 2020-06-10 01:23 | NUR ---
Woke up at approximately 2320, up and ambulating at fast pace. Escalated to entering other pts rooms and then yelling profanities and raising L arm when attempting to redirect. Shouts "leave me alone!" and "get away from me!" Irritable. States she wants a smoke. PRN chlorpromazine 50 mg given IM per deltoid at 0046. Now sitting on couch in day room. No s/o distress.
[2020-06-10 08:25] VITALS: BP 118/84
--- NOTE | 2020-06-10 09:54 | NUR ---
Assumed pt care at 0700. oriented to self. calm and co-operative. assessments completed,vss. participated in groups. took meds whole, no difficulty noted. ambulates with a steady gait. denies si/hi. no c/o of pain at this time. no sign of distress noted upon assessments. will continue to monitor.
[2020-06-10 20:00] VITALS: BP 137/91
--- NOTE | 2020-06-11 03:32 | NUR ---
06-10-20 CARE TRANSFERRED 1899. OBSERVED PT WALKING IN HALLWAY. LATER PT AAOX1, VSS, RR EVEN AND NONLABORED ON RA. PT DENIES SI/HI. PT REPORTS PAIN IN RIGHT WRIST AND PAIN MANAGED WITH PRN MEDICATION. PT HAS REMAINED CALM AND COOPERATIVE. ZERO S/S OF ACUTE DISTRESS NOTED, PT WILL BE MONITOR PER [facility] PROTOCOL.
[2020-06-11 06:33] LABS: HEMATOCRIT 34.5 % (37.0-47.0); HEMOGLOBIN 11.6 gm/dL (12.0-15.0); MCH 29.8 pg (26.0-34.0); MCHC 33.7 g/dL (28.0-37.0); MCV 88.5 fL (80.0-100.0); RBC 3.89 mil/uL (4.20-5.00); RDW 17.1 % (10.5-14.5); WBC 4.2 thou/uL (4.0-11.0)
[2020-06-11 06:35] LABS: CALCIUM 9.3 mg/dL (8.5-10.1); CREATININE 0.7 mg/dL (0.6-1.0); POTASSIUM 3.9 mmol/L (3.5-5.1)
--- NOTE | 2020-06-11 13:44 | NUR ---
SW team sent updates for pt to [facility]. SW team will continue to follow pt during her stay on this unit.
--- NOTE | 2020-06-11 14:57 | NUR ---
ASsumed pt care at 0700. pt was oriented to self. participated in groups. assessments done, vss. denies si/hi. denies pain. ambulates with a steady gait. took meds whole, no difficulty noted. no sign of acute distress upon assessments. calm and co-operative with care. At this time pt is participating in groups. will continue to monitor.
[2020-06-11 19:54] VITALS: BP 144/84
--- NOTE | 2020-06-12 03:56 | NUR ---
06-11-20 CARE TRANSFERRED 0 OBSERVED PT WALKING IN HALLWAY. LATER PT AAOX1, VSS, RR EVEN AND NONLABORED ON RA, PT DENIES SI/HI AND PAIN. PT HAS REMAINED CALM AND COOPERATIVE THROUGHOUT NURSING ASSESSMENT. ZERO S/S OF ACUTE DISTRESS NOTED, PT WILL CONTINUE TO BE MONITOR PER [facility] PROTOCOL.
[2020-06-12 07:30] VITALS: BP 94/65
--- NOTE | 2020-06-12 10:13 | NUR ---
Alert and orientated to name. States she is here d/t stroke and that it is 2019. Some confused speech, other times coherent. Verbally aggressive d/t not getting coffee, upset over fluid restriction. Denies SI/HI. Breath sounds clear. Reg HR auscultated. Color pink with brisk capillary refill and palpable peripheral pulses. No edema. Independent with voiding. Active bowel sounds over soft, flat abdomen. States she had BM yesterday. Reg, steady gait. Long cast per R arm intact, brisk capillary refill in fingers. Currently in day room with peers, no s/o distress.
[2020-06-12 11:44] VITALS: BP 115/79
--- NOTE | 2020-06-12 12:14 | NUR ---
SW reviewed pt's chart for discharge purposes. SW team will continue to follow pt during her stay on this unit.
[2020-06-12 19:18] VITALS: BP 155/95
--- NOTE | 2020-06-13 03:56 | NUR ---
ASSESSMENT: PT HAD AN UNEVENTFUL NIGHT THUS FAR. SLEPT MOST OF THE SHIFT ONLY TO AWAKE FOR TOILETRING AND TO GET TYLENOL FOR RIGHT ARM PAIN. PT RETURNED TO BED WITHOUT INCIDENT. VSS, AFEBRILE. C/O PAIN UNDERNEATH RIGHT FOOT. STATES THAT IT HURTS LESS WITH SLIPPERS ON. THE AREA APPEARS RED WITH SKIN INTACT. SLOW PROGRESS TOWARDS DC GOALS. WILL CONTINUE TO MONITOR.
[2020-06-13 09:55] VITALS: BP 142/96
--- NOTE | 2020-06-13 11:48 | NUR ---
Alert and orientated to name. Knows she is in hospital but could not state name. Denies SI/HI. Ambulating in unit without s/o distress. Breath sounds clear. Reg HR auscultated. Color pink with brisk capillary refill and palpable peripheral pulses. No edema. Independent with voiding. Active bowel sounds over soft, rounded abdomen. Cast per R arm, brisk capillary refill in fingers.
--- NOTE | 2020-06-13 15:44 | NUR ---
SW faxed updates for pt. SW team will continue to follow pt during her stay on this unit.
[2020-06-13 18:51] VITALS: BP 138/76
--- NOTE | 2020-06-14 03:24 | NUR ---
06-13-20 CARE TRANSFERRED 1899. LATER PT AAOX1, VSS RR EVEN AND NONLABORED ON RA. PT DENIES PAIN AND SI/HI. PT HAS BEEN CALM THROUGHOUT NURSING ASSESSMENT. ZERO S/S OF ACUTE DISTRESS NOTED, PT WILL CONTINUE TO BE MONITOR PER [facility] PROTOCOL.
[2020-06-14 07:30] VITALS: BP 128/85
--- NOTE | 2020-06-14 10:33 | NUR ---
YULIET contacted Maria at [facility] and was told she was in a meeting. The airline lounge receptionist again told YULIET she will have Maria call YULIET. YULIET team will continue to follow pt during her stay on this unit.
[2020-06-14 20:12] VITALS: BP 117/80
--- NOTE | 2020-06-15 03:20 | NUR ---
PT CARE ASSUMED WITH PT IN ACTIVITY ROOM WATCHING TV AT 1900.PT TOOK MEDICATION WITH NO ISSUES OR CONCERNS.PT LATER ASKED FOR BEDTIME MEDICATION AND STAFF EXPLAINED TO PT SHE HAD ALREADY RECEIVED THE MEDICATION.PT WAS DIRECTED TO HER ROOM AND SHE REMAINED IN BED TILL THIS TIME.WILL CONTINUE TO MONITOR
[2020-06-15 08:44] VITALS: BP 151/96
--- NOTE | 2020-06-15 09:00 | NUR ---
Followup: continues to eat well, >75% of meals. Last wt taken 06/10, stable at 165 lb. Remains on fluid restriction for hyponatremia, Na 131, and also receives NaCl tabs bid. Consider add thiamine with hx etoh abuse. Already on folic acid. Low nutrition risk
--- NOTE | 2020-06-15 10:29 | NUR ---
Assumed pt care 0700. Alert and oriented x3. Assessments done, vss. took meds whole, no difficulty noted. denies si/hi, denies pain at this time. ambulates with a steady gait. calm and co-operative. no sign of acute distress noted upon assessments.Participated in groups. will continue to monitor
--- NOTE | 2020-06-15 10:32 | NUR ---
DANNY contacted [facility], , to schedule a follow up appointment for the Pt. The clinic was closed due to Good Thursday Holiday. Danny left a message for a call back. DANNY will follow up on Thursday06/18/2020.
--- NOTE | 2020-06-15 11:46 | NUR ---
SHE PARTICIPATED IN RT THERAPY TODAY WITH THIS RN. SHE WAS APPROPRIATE AND INTERACTIVE. SHE TALKED ABOUT WHAT SHE LIKES TO DO IN HER LEISURE TIME, WHAT SHE LIKE TO READ, [place]IV[place]. NO PROBLEMS NOTED FROM HER.
[2020-06-15 19:20] VITALS: BP 137/86
--- NOTE | 2020-06-16 02:09 | NUR ---
patient had a flat affect, poor eye contact, fair grooming and hygiene. pain controlled this shift. fall precaution in place. patient ambulates slowly with steady gaits. patient needs minimum assistance with adl, bed mobility, transfer and toileting. patient in bed asleep at this time breathing regular and unlaboured.
[2020-06-16 09:16] VITALS: BP 143/94
--- NOTE | 2020-06-16 10:19 | NUR ---
PT. WAS AN ACTIVE PARTICIPANT IN R.T. THIS MORNING. SHE TALKED ABOUT KNOWING THAT SHE NEEDS TO CONTINUE TAKING HER MEDICATIONS AND TALKING TO STAFF/DR. SHE PARTICIPATED IN KICKING THE BEACH BALL ON THE FLOOR TO PEERS. SHE IS PLEASANT AND COOPERATIVE DURING THE GROUP.
--- NOTE | 2020-06-16 14:54 | NUR ---
1453 RESUMMED CARE FROM OVERNIGHT SHIFT THIS AM, PATIENT SITTING QUIETLY IN DAY ROOM. PATIENT AT BREAKFAST TOOK MEDICATION WITHOUT INCIDENCE; PATIENT DENIES SI/HI/AH/VH AT PRESENT. PATIENTS ABDOMEN SOFT BOWEL SOUNDS PRESENT PATIENTS LUNGS CLEAR. PATIENT HAS PARTICPATED IN GROUPS INTERACTING WITH OTHER PATIENTS. PATIENT HAS NOT DISPLAYED ANY BEHAVIORS WILL CONTINUE TO MONITOR PATIENT FOR SAFETY AND BEHAVIORS.
[2020-06-16 16:53] VITALS: BP 143/94
[2020-06-16 19:00] VITALS: BP 112/72
--- NOTE | 2020-06-17 04:03 | NUR ---
PT AMBULATING AROUND, SLOWLY BUT STEADILY. CONTINUES TO BE MONITORED FOR SHE IS A FALL RISK. CAST IS INTACT TO R ARM.HAND ELEVATED ON PILLOW WHEN PT IN BED AND WHILE IN DAY AREA MUCH POSSIBLE. PT GIVEN TYLENOL AT HS FOR R ARM PAIN-WITH RELIEF. PT HAS BEEN PLEASANT AND COOPEARTIVE. GOT UPSET AND NASTY AT SOME POINT WHEN TV WAS TURNED OFF AT 10PM-PT WENT TO BED AND WOKE UP IN A BETTER MOOD.PT IS CONTINENT. REMAINS ON FLUID RESTRICTION-WHICH SHE COMPLIES WITH IN THIS SHIFT SO FAR.C/O TENDERNESS/SORENESS TO R PLANTAR-ASKING TO SEE OPERATIONAL TEST MECHANIC-RUBENS ALREADY CONSULTED.
[2020-06-17 08:59] VITALS: BP 157/99
--- NOTE | 2020-06-17 13:28 | NUR ---
REPORTS FEELING "KIND OF OUT OF IT" TODAY AND HAS REQUIRED SLIGHTLY MORE DIRECTIONS/ASSIST. RESTLESS AT TIMES -UP TO PACE IN HALLWAYS OR USE RESTROOM-GAIT IS STEADY WITHOUT ASSISTIVE DEVICES. DOES NEED ASSISTANCE IN LOCATING HER ROOM OR GETTING BACK TO DAYROOM AFTERUSING BATHROOM. DENIES SI/SH. AFFECT CONSTRICTED-DELAYED VERBAL RESPONSES.NO AGGRESSIVE BEHAVIOOR-AGITATION NOTED OR REPORTED.
[2020-06-17 19:50] VITALS: BP 139/88
[2020-06-17 22:42] VITALS: BP 139/88
--- NOTE | 2020-06-17 23:26 | NUR ---
Assumed care on 06/17/20 @ 1900, ambulating thru the mileu with a slow steady gait. Cast on R hand C/D/I, A&Ox1 to person only. Pleasant affect noted. Reports slight depression and anxiety. Denies AH/VH, confusion noted. Needs assistance finding room to use the toilet, and finding way back to the dayroom. Cooperative with care. HRRR, S1S2 noted, Lungs CTA bilat, ABD N reports bm today on 06/17. Compliant with medication. Retired to bed @ HS, bed in low position, bed alarm set, eyes closed, respirations even and unlabored. Will continue to monitor as per unit protocol for safety and comfort.
[2020-06-18 09:28] VITALS: BP 116/87
--- NOTE | 2020-06-18 09:49 | NUR ---
Assumed pt care at 0700. pt was calm and co-operative. Assessments completed,vss. pt denies si/hi. CALLUS NOTED ON PT LEFT FOOT. DR AGUIRRE NOTIFIED.PT AMBULATES WITH STEADY GAITS. REQUIRES ASSISSTANCE LOCATING ROOM FOR TOILETING. ALERT AND ORIENTED TO PERSON AND PLACE. TOOK MEDS WHOLE, NO DIFFICULTY NOTED. WILL CONTINUE TO MONITOR PT.
[2020-06-18 09:53] VITALS: BP 116/87
[2020-06-18 10:08] VITALS: BP 116/87
[2020-06-18] MEDS ORDERED: LIPITOR 20 MG T20 M1 PO (11:35)
[2020-06-18] MEDS ORDERED: DEPAKOTE500 MG PO (11:36)
[2020-06-18] MEDS ORDERED: CHLORPROMAZINE100 MG PO ×2 (11:37→11:38)
[2020-06-18] MEDS ORDERED: CHLORPROMAZINE25 M1 PO (11:37)
[2020-06-18] MEDS ORDERED: PROTONIX 20 MG20 M1 PO (11:39)
[2020-06-18] MEDS ORDERED: MAGNESIUM400 MG PO (11:39)
[2020-06-18] MEDS ORDERED: SODIUM CHLORIDE1 GM PO (11:41)
--- NOTE | 2020-06-19 12:56 | NUR ---
YULIET faxed d/c docs for pt to [facility]. YULIET will file docs in hospital file. YULIET made pt an appt with [facility] for 07/02 @4064. YULIET contacted and spoke with Shelly; Shelly took the message about pt's appt. No other needs for YULIET team to address at this time.
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
== END 2020-06-18 14:10 | DRG 884 ==
LOC: SBH 12:15
PROVIDERS: Hospitalist; Internal Medicine; ADMIT Psychiatry & Neurology Psychiatry; ATTEND Psychiatry & Neurology Psychiatry
PROC: 2W3AX2Z Immobilization of Right Upper Arm using Cast (ICD-10-PCS; principal; 2020-06-02)
PROC: 0HBLXZZ Excision of Left Lower Leg Skin, External Approach (ICD-10-PCS; 2020-06-18)
DX: F01.51 Vascular dementia, unspecified severity, with behavioral disturbance (principal); S52.91XA Unspecified fracture of right forearm, initial encounter for closed fracture; E87.1 Hypo-osmolality and hyponatremia; F10.20 Alcohol dependence, uncomplicated; G40.909 Epilepsy, unspecified, not intractable, without status epilepticus; I48.91 Unspecified atrial fibrillation; F17.210 Nicotine dependence, cigarettes, uncomplicated; I10 Essential (primary) hypertension; E78.5 Hyperlipidemia, unspecified; Z20.822 Contact with and (suspected) exposure to COVID-19; M79.89 Other specified soft tissue disorders; K21.9 Gastro-esophageal reflux disease without esophagitis; F31.9 Bipolar disorder, unspecified; F41.9 Anxiety disorder, unspecified; W19.XXXA Unspecified fall, initial encounter; F19.10 Other psychoactive substance abuse, uncomplicated; D69.6 Thrombocytopenia, unspecified; M79.9 Soft tissue disorder, unspecified; Z86.73 Personal history of transient ischemic attack (TIA), and cerebral infarction without residual deficits; Z88.8 Allergy status to other drugs, medicaments and biological substances; Y93.89 Activity, other specified; Y92.89 Other specified places as the place of occurrence of the external cause; Y99.8 Other external cause status
CPT/HCPCS: 10880